=== PATIENT | male | born 1940 | race Caucasian/White ===

== ENCOUNTER 2018-11-19 11:03 | Emergency (ER) | payer MEDICARE ==
[2018-11-19] MEDS ORDERED: Lidocaine 1% 20 ML MDV INJECT ONE ×2 (11:12→14:03)
[2018-11-19] MEDS ORDERED: Bacitracin Oint 1 GM U/D Packet TOP ONE (11:13)
[2018-11-19] MEDS ORDERED: Lidocaine 1% 20 ML MDV ONE (11:42)
--- NOTE | 2018-11-19 12:27 | EDM.PDOC ---
ED HPI GENERAL MEDICAL PROBLEM - General Chief Complaint: Laceration Stated Complaint: DIZZY AND FELL/LACERATION TO HEAD Time Seen by Provider: 11/19/18 11:15 Source of Information: Reports: Patient History Limitations: Reports: No Limitations - History of Present Illness INITIAL COMMENTS - FREE TEXT/NARRATIVE: pt just got back from vacation and he was out cleaning in the garage Onset: Today, Sudden Duration: Hour(s): Location: Reports: Head, Neck, Other (pt hit the top of his head on a ladder. He ended up with a 7 inch laceration on the top of his head with alot of bleeding. He was not knocked out but he was very dizzy. He does have a headache. He also has pain in the rt post cervical area. ) Associated Symptoms: Reports: Headaches, Weakness Head Pain Score (Numeric/FACES): 8 - Related Data Allergies Allergy/AdvReac Type Severity Reaction Status Date / Time morphine Allergy Itching Verified 11/19/18 11:12 Past Medical History Endocrine/Metabolic History: Reports: Diabetes, Type II - Past Surgical History GI Surgical History: Reports: Cholecystectomy Social & Family History - Tobacco Use Smoking Status *Q: Never Smoker ED ROS GENERAL - Review of Systems Review Of Systems: See Below Constitutional: Reports: No Symptoms HEENT: Reports: Other (pt has a large lceration on the top of his head) Respiratory: Reports: No Symptoms Cardiovascular: Reports: No Symptoms Endocrine: Reports: No Symptoms GI/Abdominal: Reports: No Symptoms : Reports: No Symptoms Musculoskeletal: Reports: No Symptoms Skin: Reports: Other (pt has a 7 inch laceration on the top of his head. ) Neurological: Reports: No Symptoms Psychiatric: Reports: Anxiety ED EXAM, SKIN/RASH Exam: See Below Text/Narrative:: pt arrived with a very large scalp laceration. He has a 7 inch scalp laceration- -flap type. Exam Limited By: No Limitations General Appearance: Alert, Anxious, Moderate Distress, Other (pt is doing alot of leeding from the laceration. pupils are equal and reactive. ) Ears: Normal TMs Nose: Normal Inspection Throat/Mouth: Normal Inspection Head: Atraumatic, Other (pt has a 7 inch flap type laceration on the top of his head. ) Neck: Other (pt is having tender ness on the rt siode of his neck. ) Respiratory/Chest: No Respiratory Distress Cardiovascular: Regular Rate, Rhythm GI/Abdominal: Soft, Non-Tender (Male) Exam: Deferred Rectal (Males) Exam: Deferred Back Exam: Normal Inspection Extremities: Normal Inspection Neurological: Alert, Oriented, Normal Cognition Course - Vital Signs Last Recorded V/S: Last Vital Signs Temp 34.9 C L 11/19/18 11:15 Pulse 96 11/19/18 11:15 Resp 16 11/19/18 11:15 BP 164/94 H 11/19/18 11:15 Pulse Ox 92 L 11/19/18 11:15 - Orders/Labs/Meds Labs: Laboratory Tests 11/19/18 11/19/18 Range/Units 13:07 13:07 WBC 11.8 H (4.5-11.0) K/uL RBC 4.97 (4.30-5.90) M/uL Hgb 15.2 H (12.0-15.0) g/dL Hct 45.4 (40.0-54.0) % MCV 91 (80-98) fL MCH 31 (27-31) pg MCHC 34 (32-36) % Plt Count 192 (150-400) K/uL Neut % (Auto) 79 H (36-66) % Lymph % (Auto) 12 L (24-44) % Dale % (Auto) 8 H (2-6) % Eos % (Auto) 1 L (2-4) % Baso % (Auto) 0 (0-1) % Sodium 136 L (140-148) mmol/L Potassium 4.8 (3.6-5.2) mmol/L Chloride 100 (100-108) mmol/L Carbon Dioxide 28 (21-32) mmol/L Anion Gap 12.8 (5.0-14.0) mmol/L BUN 13 (7-18) mg/dL Creatinine 1.2 (0.8-1.3) mg/dL Est Cr Clr Drug Dosing 54.07 mL/min Estimated GFR (MDRD) 59 L (>60) Glucose 243 H (74-106) mg/dL Calcium 9.1 (8.5-10.1) mg/dL Meds: Medications Discontinued Medications Generic Name Dose Route Start Last Admin Trade Name Freq PRN Reason Stop Dose Admin Acetaminophen 650 mg 11/19/18 13:56 Tylenol PO 11/19/18 13:57 NOW ONE Bacitracin 1 dose 11/19/18 11:13 11/19/18 11:18 Bacitracin Oint 1 Gm TOP 11/19/18 11:14 1 dose ONETIME ONE Administration Lidocaine HCl 20 ml 11/19/18 11:12 11/19/18 11:18 Xylocaine 1% INJECT 11/19/18 11:13 20 ml ONETIME ONE Administration Lidocaine HCl Confirm 11/19/18 11:42 Xylocaine 1% Administered 11/19/18 11:43 Dose 20 ml .ROUTE .[facility] ONE - Re-Assessments/Exams Free Text/Narrative Re-Assessment/Exam: 11/19/18 14:03 pt was found to have a 7 inch scalp laceration deep to the periotium . Hewas doing alot of bleeding. He had a cat scan of his head which was normal. He had a cat scan of his neck which revealed degenerative arthritis. The wiund was irrigated with saline and cleansed well. It was infiltrated with lidocaine, The flap was tacked down with 4-0 chromic. It was then closed tightly wioth 3-0 ethilon. Bleeding appear to be completely under control. A pressure dressing was applied. with bactracin. Departure - Departure Time of Disposition: 12:21 Disposition: Home, Self-Care 01 Condition: Fair Clinical Impression: Laceration of scalp without complication - Discharge Information Instructions: Laceration Care, Adult, Mgcr-[id number] Referrals: PCP,None [Primary Care Provider] - Forms: ED Department Discharge Care Plan Goals: leave pressure dressing in place until tomorrow am. May remove it and gentlly clean the scalp after that keep dry. Suture removal in 8-10 days. He will rtc if there id redness or drainage. use tylenol 650 q6h prn for headache.
--- NOTE | 2018-11-19 13:45 | CT ---
Head wo Cont CLINICAL HISTORY: Head trauma COMPARISON: None TECHNIQUE: Transverse scans were obtained from the base of the skull through the vertex without IV contrast on a multislice, multidetector CT scanner. Auto dosage reduction and iterative reconstruction techniques employed. FINDINGS: No focal abnormal parenchymal density is identified. There is no mass effect, hemorrhage, or extraaxial collection. The basal cisterns and sulci over the convexities are prominent. The ventricles are prominent. There is some periventricular lucency patient has a scalp laceration. There are a few tiny opacities in the subcutaneous tissue towards the midline margin of the laceration. These may represent small foreign bodies. IMPRESSION: No cranial hemorrhage mass effect or extra-axial collection Moderate to scalp laceration with a few submillimeter scattered radiopacities which may represent foreign body.
--- NOTE | 2018-11-19 13:54 | CT ---
Cervical Spine wo Cont CLINICAL HISTORY: Trauma TECHNIQUE: Multiple CT sections were taken through the cervical spine in the transaxial projection. Coronal and sagittal views were reconstructed. Images were viewed at bone as well as soft tissue windows on a digital workstation. Auto dosage reduction and iterative reconstruction techniques employed. FINDINGS: Sagittal images show some minimal anterolisthesis of C3 on C4 and C4 on C5. This is felt to be due to facet disease. There is diffuse osteoarthritis throughout the apophyseal joints. There is some spondylosis. There is reversal of normal cervical lordosis which may be chronic or due to spasm. Axial images show spondylosis and uncovertebral joint spurring. This causes some. There is severe encroachment left at C3-4. There is no significant encroachment on the central canal Impression: Moderate diffuse degenerative disc disease with spondylosis Uncovertebral joint spurring causes bony foraminal encroachment at multiple levels Severe osteoarthritis throughout the cervical facets. There are some mild anterolisthesis secondary to facet disease. No fracture
[2018-11-19] MEDS ORDERED: Acetaminophen 325 MG Tab PO ONE (13:56)
== END 2018-11-19 14:16 | disposition home or self-care (01) ==
LOC: JP.ED 11:03
DX: S01.01XA Laceration without foreign body of scalp, initial encounter (principal); E11.9 Type 2 diabetes mellitus without complications; W22.8XXA Striking against or struck by other objects, initial encounter; Z88.5 Allergy status to narcotic agent
CPT/HCPCS: 12005; 36415; 70450; 72125; 80048; 85025; 99283; J2001

== ENCOUNTER 2024-09-28 13:01 | Emergency (ER) | payer BC, MEDICARE ==
[2024-09-28 14:52] LABS: BASOPHILS ABSOLUTE AUTO 0.03 K/uL (0.00-0.10); BASOPHILS PERCENT AUTO 0.6 % (0.1-1.3); EOSINOPHILS ABSOLUTE AUTO 0.36 K/uL (0.00-0.40); EOSINOPHILS PERCENT AUTO 6.8 % (0.0-5.4); HEMATOCRIT 41.4 % (38.4-49.7); HEMOGLOBIN 13.6 g/dL (12.9-16.9); IMMATURE GRAN PERCENT AUTO 0.2 % (0.0-0.7); LYMPHOCYTES ABSOLUTE AUTO 1.08 K/uL (0.8-3.3); LYMPHOCYTES PERCENT AUTO 20.3 % (11.4-47.7); MEAN CORPUSCULAR HEMOGLOBIN 31.4 pg (31.6-35.5); MEAN CORPUSCULAR HGB CONC 32.9 g/dL (31.6-35.5); MEAN CORPUSCULAR VOLUME 95.6 fL (81.4-99.0); MONOCYTES ABSOLUTE AUTO 0.61 K/uL (0.20-0.90); MONOCYTES PERCENT AUTO 11.4 % (3.3-12.6); NEUTROPHILS ABSOLUTE AUTO 3.24 K/uL (1.0-7.6); NEUTROPHILS PERCENT AUTO 60.7 % (40.0-78.1); PLATELET COUNT,PLT 118 K/uL (130-375); RED BLOOD CELL COUNT 4.33 M/uL (4.14-5.76); WHITE BLOOD CELL COUNT,WBC 5.3 K/uL (3.2-11.0)
[2024-09-28 14:54] LABS: IMMATURE GRAN ABSOLUTE AUTO 0.01 K/uL (0.00-0.23)
[2024-09-28 15:18] LABS: A/G RATIO 0.8 (1.2-2.2); ALANINE AMINOTRANSFERASE,ALT 29 U/L (12-78); ALBUMIN 3.1 g/dL (3.4-5.0); ALKALINE PHOSPHATASE 102 U/L (46-116); ANION GAP 9.9 mmol/L (5.0-14.0); ASPARTATE AMNIOTRANSFERASE,AST 30 U/L (15-37); BILIRUBIN TOTAL 1.1 mg/dL (0.2-1.0); BLOOD UREA NITROGEN,BUN 20 mg/dL (7-18); C-REACTIVE PROTEIN 1.56 mg/dL (<0.50); CALCIUM 9.1 mg/dL (8.5-10.1); CARBON DIOXIDE,CO2 28 mmol/L (21-32); CHLORIDE,CL 105 mmol/L (100-108); CREATININE 1.2 mg/dL (0.8-1.3); ESTIMATED GFR 60 mL/min (>60); GLUCOSE RANDOM 98 mg/dL (74-106); POTASSIUM,K 3.9 mmol/L (3.6-5.2); PRO B-TYPE NATRIUR PEPT,BNPPRO 489 pg/mL (5-450); SODIUM,NA 139 mmol/L (140-148)
== END 2024-09-28 15:48 | disposition home or self-care (01) ==
LOC: JP.ED 13:01
DX: J81.0 Acute pulmonary edema (principal); E11.9 Type 2 diabetes mellitus without complications; Z88.5 Allergy status to narcotic agent; Z79.899 Other long term (current) drug therapy; Z90.49 Acquired absence of other specified parts of digestive tract
CPT/HCPCS: 36415; 71045; 71045-26; 80053; 83880; 84484; 85025; 86140; 93005; 99285

== ENCOUNTER 2024-12-16 12:28 | Emergency (ER) | payer MEDICARE ==
[2024-12-16 13:09] LABS: BASOPHILS ABSOLUTE AUTO 0.05 K/uL (0.00-0.10); BASOPHILS PERCENT AUTO 0.8 % (0.1-1.3); EOSINOPHILS ABSOLUTE AUTO 0.16 K/uL (0.00-0.40); EOSINOPHILS PERCENT AUTO 2.5 % (0.0-5.4); IMMATURE GRAN PERCENT AUTO 0.2 % (0.0-0.7); LYMPHOCYTES ABSOLUTE AUTO 1.26 K/uL (0.8-3.3); LYMPHOCYTES PERCENT AUTO 20.0 % (11.4-47.7); MONOCYTES ABSOLUTE AUTO 0.39 K/uL (0.20-0.90); MONOCYTES PERCENT AUTO 6.2 % (3.3-12.6); NEUTROPHILS ABSOLUTE AUTO 4.42 K/uL (1.0-7.6); NEUTROPHILS PERCENT AUTO 70.3 % (40.0-78.1); PLATELET COUNT,PLT 161 K/uL (130-375); RED BLOOD CELL COUNT 4.89 M/uL (4.14-5.76); WHITE BLOOD CELL COUNT,WBC 6.3 K/uL (3.2-11.0)
[2024-12-16 13:11] LABS: IMMATURE GRAN ABSOLUTE AUTO 0.01 K/uL (0.00-0.23)
[2024-12-16 13:34] LABS: A/G RATIO 0.9 (1.2-2.2); ALANINE AMINOTRANSFERASE,ALT 46 U/L (12-78); ASPARTATE AMNIOTRANSFERASE,AST 33 U/L (15-37); BILIRUBIN TOTAL 1.0 mg/dL (0.2-1.0); BLOOD UREA NITROGEN,BUN 14 mg/dL (7-18); CARBON DIOXIDE,CO2 30 mmol/L (21-32); CHLORIDE,CL 101 mmol/L (100-108); CREATININE 1.1 mg/dL (0.8-1.3); EST CRCL DRUG DOSING (CG) 50.09 mL/min; ESTIMATED GFR 67 mL/min (>60); GLUCOSE RANDOM 272 mg/dL (74-106); POTASSIUM,K 4.2 mmol/L (3.6-5.2); PROTEIN TOTAL,TP 7.8 g/dL (6.4-8.2); SODIUM,NA 137 mmol/L (140-148)
== END 2024-12-16 16:41 | disposition home or self-care (01) ==
LOC: JP.ED 12:28
DX: H34.12 Central retinal artery occlusion, left eye (principal); I65.22 Occlusion and stenosis of left carotid artery; I10 Essential (primary) hypertension; E78.00 Pure hypercholesterolemia, unspecified; E11.9 Type 2 diabetes mellitus without complications; Z88.5 Allergy status to narcotic agent; Z79.899 Other long term (current) drug therapy; Z79.01 Long term (current) use of anticoagulants; Z90.49 Acquired absence of other specified parts of digestive tract
CPT/HCPCS: 36415; 70450; 70450-26; 70496; 70496-26; 70498; 70498-26; 80053; 85025; 85651; 86140; 93005; 93010; 99283; 99284